=== PATIENT | female | born 1965 | race Caucasian/White ===

== ENCOUNTER 2017-11-08 14:52 | Emergency (ER) | payer BC ==
[2017-11-08] MEDS: SUBLIMAZE IV PRN ×2 (16:06→18:19)
[2017-11-08 16:12] LABS: Basophils # (Auto) 0.1 K/mm3 (0.0-0.1); Basophils % (Auto) 0.7 % (0.0-1.8); Eosinophils # (Auto) 0.3 K/mm3 (0.0-0.4); Eosinophils % (Auto) 2.2 % (0.0-4.3); Hematocrit 45.7 % (30.3-42.9); Hemoglobin 14.8 gm/dl (10.1-14.3); Lymphocytes # (Auto) 1.8 K/mm3 (1.2-5.4); Lymphocytes % (Auto) 13.9 % (13.4-35.0); Mean Corpuscular HGB Conc 32 % (30-34); Mean Corpuscular Hemoglobin 29 pg (28-32); Mean Corpuscular Volume 91 fl (79-97); Monocytes # (Auto) 0.8 K/mm3 (0.0-0.8); Monocytes % (Auto) 5.7 % (0.0-7.3); Red Blood Count 5.04 M/mm3 (3.65-5.03); Red Cell Distribution Width 13.1 % (13.2-15.2)
[2017-11-08 16:21] LABS: BUN/Creatinine Ratio 35; Blood Urea Nitrogen 14 mg/dL (7-17); Calcium 9.8 mg/dL (8.4-10.2); Hemolysis Index 25
[2017-11-08 16:30] LABS: Platelet Count 263 K/mm3 (140-440)
--- NOTE | 2017-11-08 17:55 | XRay Report ---
FINAL REPORT EXAM: XR TIBIA FIBULA 2V RT HISTORY: Fell down 2 steps TECHNIQUE: Frontal and lateral views of right tibia and fibula. PRIORS: None. FINDINGS: Fractures of distal tibia, including probable medial and posterior malleoli, and also distal fibular metaphysis, with mild displacement and anterior angulation. Probable anteromedial subluxation or dislocation of tibiotalar joint. Soft tissue edema. Remainder of osseous and soft tissue structures grossly unremarkable. IMPRESSION: 1. Probable trimalleolar fracture and dislocation in right distal tibia and fibula as reported. Correlation with dedicated right ankle radiographs may help in further evaluation, as clinically indicated.
[2017-11-08] MEDS ORDERED: BOOSTRIX IM ONE (19:16)
--- NOTE | 2017-11-08 19:16 | Emergency Department Report ---
ED Fall HPI - General Chief Complaint: Fall Stated Complaint: FALL Time Seen by Provider: 11/08/17 18:40 Source: patient, EMS Mode of arrival: Ambulatory - History of Present Illness Initial Comments: Slid down the stairs 4 hours prior to arrival here with obvious deformity to the right ankle with a small abrasion with a valgus deformity to the right ankle she does have good neurovascular intact there is an abrasion at the medial malleolus -: Sudden, hour(s) Fall From: standing When Fall Occurred: unsure Fall Witnessed: yes, by family Place Fall Occurred: home Loss of Consciousness: none Prolonged Down Time?: no Symptoms Prior to Fall: none Location: other (right ankle) Location - Extremities: Right: Ankle Severity: mild, moderate Severity scale (0 -10): 3 Quality: sharp Associated Symptoms: denies. denies: headache, neck pain, numbness, weakness, chest paint, shortness of breath, abdominal pain, hematuria, unable to walk, lightheaded, vertigo, confusion - Related Data Allergies Allergy/AdvReac Type Severity Reaction Status Date / Time No Known Allergies Allergy Unverified 11/08/17 15:46 ED Review of Systems ROS: Stated complaint: FALL Other details as noted in HPI Comment: All other systems reviewed and negative Constitutional: denies: diaphoresis, fever, malaise Eyes: denies: eye discharge, vision change ENT: denies: dental pain, hearing loss, epistaxis Respiratory: denies: shortness of breath, SOB with exertion, SOB at rest, stridor Cardiovascular: denies: chest pain, palpitations, dyspnea on exertion, orthopnea , edema, syncope, paroxysmal nocturnal dyspnea Gastrointestinal: denies: abdominal pain, nausea, vomiting, diarrhea, constipation, hematemesis, melena Genitourinary: denies: frequency, hematuria, discharge Musculoskeletal: joint swelling, arthralgia, myalgia Skin: lesions, other (small abrasion over her right medial malleolus appears superficial). denies: rash, pruritus Neurological: denies: headache, weakness, numbness, paresthesias, confusion, abnormal gait ED Past Medical Hx - Past Medical History Previous Medical History?: Yes Hx Heart Attack/AMI: Yes (2010) Hx Diabetes: Yes - Surgical History Past Surgical History?: Yes Additional Surgical History: , stent 2010 - Social History Smoking Status: Unknown if ever smoked Substance Use Type: None ED Physical Exam - General Limitations: No Limitations General appearance: alert, anxious - Head Head exam: Present: atraumatic, normocephalic - Eye Eye exam: Present: PERRL, EOMI - ENT ENT exam: Present: normal exam, normal orophraynx - Neck Neck exam: Present: normal inspection. Absent: tenderness, meningismus - Respiratory Respiratory exam: Present: normal lung sounds bilaterally, other (atraumatic). Absent: respiratory distress, wheezes, rales, rhonchi, stridor - Cardiovascular Cardiovascular Exam: Present: regular rate, normal rhythm, other (atraumatic pulses equal bilaterally) - GI/Abdominal GI/Abdominal exam: Present: soft. Absent: distended, tenderness, guarding, rebound, rigid, mass, pulsatile mass - Extremities Exam Extremities exam: Present: other (valgus deformity right ankle good capillary refill warm to touch no cyanosis good pulses appears Norvasc intact although patient is uncooperative secondary to pain [place] the extremities are within normal limits back is nontender neck is nontender) - Back Exam Back exam: Present: normal inspection, full ROM, CVA tenderness (R). Absent: tenderness, CVA tenderness (L), muscle spasm, paraspinal tenderness, vertebral tenderness, rash noted - Neurological Exam Neurological exam: Present: alert, oriented X3, CN II-XII intact. Absent: motor sensory deficit - Psychiatric Psychiatric exam: Present: normal affect, anxious - Skin Skin exam: Present: warm, abrasion, ecchymosis, other (superficial abrasion right lateral malleolus). Absent: petechiae ED Course Vital Signs 11/08/17 15:38 Temperature 98.0 F Pulse Rate 98 H Respiratory 20 Rate - Orthopedic Fracture Reduction Fracture #1 Consent Obtained: verbal consent Time Out Performed: Yes Side: right Fracture Reduction Location: other (ankleleank) Analgesia: other (fentanyl for pain control) Technique: traction splint Post Reduction X-rays Demonstrate: acceptable reduction Post-Reduction Neuro Exam: intact Post-Reduction Vascular Exam: intact Splint Applied: Yes Patient Tolerated Procedure: well, no complications ED Medical Decision Making - Lab Data Result diagrams: 11/08/17 16:00 11/08/17 16:00 - Radiology Data Radiology results: image reviewed - Medical Decision Making Patient did arrive in a splint she did have neurovascular intact she was started IV access and pain control, x-ray does reveal a trimalleolar with displacement, I did consent the patient verbally for closed reduction she was alert and oriented 3 not intoxicated was aware of the risks including neurovascular problems worsening of the injury she did consent verbally for closed reduction, x-ray was obtained closed reduction was obtained with good improvement of the fracture we did splint this in a stirrup as well as a posterior, she was neurovascular intact pre-and post, the skin break is superficial this does not appear to be an open dislocation or open fracture, case was discussed with Dr. Unger of orthopedics, he is recommending outpatient follow-up in his office, we will elect to provide pain control as well as antibiotics, she did get a tetanus shot. She did verbalize understanding of the emergent need to see Dr. Unger tomorrow for ORIF patient was discharged stable condition close neurovascular intact Critical care attestation.: If time is entered above; I have spent that time in minutes in the direct care of this critically ill patient, excluding procedure time. ED Disposition Clinical Impression: Closed right ankle fracture Disposition: - TO HOME OR SELFCARE Is pt being admited?: No Condition: Stable Instructions: Ankle Fracture (ED), Abrasion (ED) Additional Instructions: Nonweightbearing with crutches, rest ice elevate the injury, return immediately if door alarming symptoms such as worse pain numbness color temperature changes or call 911 see the doctor listed tomorrow Referrals: PRIMARY MD MARTIN [Primary Care Provider] - 3-5 Days ESEQUIEL UNGER MD [Staff Physician] - 24 Hours Time of Disposition: 20:47
[2017-11-08] MEDS ORDERED: ceFAZolin 1 GM in NACL 0.9% 20 ML IV ONE (20:30)
--- NOTE | 2017-11-08 21:10 | XRay Report ---
FINAL REPORT EXAM: XR ANKLE 3+V RT HISTORY: post redUC TECHNIQUE: 3 views of right ankle in fiberglass splint/cast. PRIORS: Earlier on same date. FINDINGS: Fractures in the distal tibia medial and posterior malleoli and also distal fibular metaphysis again noted, with decreased displacement and improved positioning. Tibiotalar joint normally relocated. Mildly increased medial clear space of ankle mortise. Splint/cast artifact obscures remainder of fine osseous and soft tissue detail. IMPRESSION: 1. Status post reduction of trimalleolar fracture and tibiotalar dislocation in right ankle.
[2017-11-09 06:19] VITALS: BP 125/52
== END 2017-11-08 21:00 | disposition home or self-care (01) ==
LOC: ED 14:52
DX: S82.851A Displaced trimalleolar fracture of right lower leg, initial encounter for closed fracture (principal); E11.9 Type 2 diabetes mellitus without complications; I25.2 Old myocardial infarction; W10.8XXA Fall (on) (from) other stairs and steps, initial encounter; Y93.89 Activity, other specified; Y92.89 Other specified places as the place of occurrence of the external cause; Y99.8 Other external cause status
CPT/HCPCS: 27818; 36415; 73590; 73610; 80048; 82962; 85025; 90471; 90715; 96374; 99285; J0690; J3010